=== PATIENT | male | born 1965 | race Asian ===

== ENCOUNTER 2017-05-10 02:18 | Emergency (ER) | payer BC, OTHER ==
[~2017-05-10] VITALS: Ht 152.4 cm; Wt 72.6 kg
[2017-05-10] MEDS ORDERED: LISI1TAB5 PO (02:36)
[2017-05-10] MEDS ORDERED: diphenhydrAMINE 50 MG/ML VIAL IVP ONE (03:00)
[2017-05-10] MEDS ORDERED: methylPREDNISolone SOD SUCC PF 125 MG/2 ML VIAL. IV ONE (03:00)
[2017-05-10] MEDS ORDERED: IV NORMAL SALINE 500ML BAG 500 ML IV ONE (03:00)
[2017-05-10] MEDS ORDERED: FAMOTIDINE 20 MG/2 ML VIAL IVP ONE (03:00)
--- NOTE | 2017-05-10 03:06 | PHYS DOC ---
Past Medical History Past Medical History: Hypertension Past Surgical History: No Surgical History Alcohol Use: None Drug Use: None Adult General Chief Complaint Chief Complaint: ALLERGIC REACTION HPI HPI Patient is a 51 year old male who presents with 4 hour history of itchy rash hives that he thinks is due to some food he might have eaten at a wedding but nothing specific. Denies any lip swelling tongue swelling difficulty swallowing wheezing or shortness of breath or chest pain or lightheadedness. Prior history of food allergy. Take 2 Benadryl a few hours ago with minimal improvement. Review of Systems Review of Systems Constitutional: Denies fever or chills [] Eyes: Denies change in visual acuity, redness, or eye pain [] HENT: Denies nasal congestion or sore throat [] Respiratory: Denies cough or shortness of breath [] Cardiovascular: No additional information not addressed in HPI [] GI: Denies abdominal pain, nausea, vomiting, bloody stools or diarrhea [] : Denies dysuria or hematuria [] Musculoskeletal: Denies back pain or joint pain [] Integument: Denies rash or skin lesions [] Neurologic: Denies headache, focal weakness or sensory changes [] Endocrine: Denies polyuria or polydipsia [] Current Medications Current Medications Current Medications Medications (Trade) Dose Ordered Sig/Isabel Start Time Stop Time Status Last Admin Dose Admin Diphenhydramine HCl (Benadryl) 50 mg 1X ONCE 05/10/17 03:00 05/10/17 03:01 DC 05/10/17 02:47 50 MG Famotidine (Pepcid) 20 mg 1X ONCE 05/10/17 03:00 05/10/17 03:01 DC 05/10/17 02:47 20 MG Methylprednisolone Sodium Succinate (SOLU-Medrol 125MG VIAL) 125 mg 1X ONCE 05/10/17 03:00 05/10/17 03:01 DC 05/10/17 02:48 125 MG Sodium Chloride 500 ml @ 500 mls/hr 1X ONCE 05/10/17 03:00 05/10/17 03:49 DC 05/10/17 02:49 500 MLS/HR Allergies Allergies Allergies Coded Allergies Type Severity Reaction Last Updated Verified No Known Drug Allergies 05/10/17 No Physical Exam Physical Exam Constitutional: Well developed, well nourished, no acute distress, non-toxic appearance. [] HENT: Normocephalic, atraumatic, bilateral external ears normal, oropharynx moist, no oral exudates, nose normal. No lip swelling no tongue swelling [] Eyes: PERRLA, EOMI, conjunctiva normal, no discharge. [] Neck: Normal range of motion, no tenderness, supple, no stridor. [] Cardiovascular:Heart rate regular rhythm, no murmur [] Lungs & Thorax: Bilateral breath sounds clear to auscultation [] Abdomen: Bowel sounds normal, soft, no tenderness, no masses, no pulsatile masses. [] Skin: Warm, dry, no erythema, urticarial rash. [] Back: No tenderness, no CVA tenderness. [] Extremities: No tenderness, no cyanosis, no clubbing, ROM intact, no edema. [] Neurologic: Alert and oriented X 3, normal motor function, normal sensory function, no focal deficits noted. [] Psychologic: Affect normal, judgement normal, mood normal. [] Current Patient Data Vital Signs Vital Signs Date Time Temp Pulse Resp B/P (MAP) Pulse Ox O2 Delivery O2 Flow Rate FiO2 05/10/17 02:36 97.8 122 22 166/97 (120) 96 Room Air 97.8 EKG EKG [] Radiology/Procedures Radiology/Procedures [] Course & Med Decision Making Course & Med Decision Making Pertinent Labs and Imaging studies reviewed. (See chart for details) [Treated with IV fluids, Solu-Medrol, Benadryl, and Pepcid. 3:20 AM: Patient's rash is resolved he is resting comfortably no complaints related to go home. Dragon Disclaimer Dragon Disclaimer This electronic medical record was generated, in whole or in part, using a voice recognition dictation system. Departure Departure Impression: Primary Impression: Urticaria Additional Impression: Food allergy Disposition: 01 HOME, SELF-CARE Condition: IMPROVED Referrals: SINGH KRISHNAMURTHY MD (PCP) Scripts Prednisone (PREDNISONE) 50 Mg Tablet 1 TAB PO DAILY, #5 TAB Prov: CHRIS ALEMAN MD 05/10/17 Problem Qualifiers CHRIS ALEMAN MD May 10, 2017 03:06
[2017-05-10 03:30] VITALS: BP 139/98
[2017-05-10] MEDS ORDERED: PRED50TA PO (03:31)
== END 2017-05-10 03:49 | disposition home or self-care (01) ==
LOC: ER 02:18
DX: L50.0 Allergic urticaria (principal); L27.2 Dermatitis due to ingested food; I10 Essential (primary) hypertension
CPT/HCPCS: 96361; 96374; 96375; 99284; J1200; J2930; J7040; S0028

== ENCOUNTER → 2019-08-29 | Outpatient (CLI) | payer BC, OTHER ==
[~2019-08-29] MED LIST: LISI1TAB19 PO; PRED50TA PO
--- NOTE | 2019-08-29 15:26 | KCIC ---
EXAM: AP, lateral and lumbosacral spot views of the lumbar spine DATE: 08/29/2019 12:00 AM INDICATION: Hyperreflexia low back pain, right leg pain COMPARISON: No Prior FINDINGS: Tiny ribs are seen at T12. 5 nonrib-bearing lumbar-type vertebral bodies. Vertebral body heights are preserved. Mild T11-12 and L5-S1 disc height loss. Associated prominent endplate osteophytes are seen at L1-2, L4-5 and L5-S1. Moderate facet degenerative changes are seen. No spondylolisthesis. Moderate colonic stool content is seen. IMPRESSION: 1. Multilevel spondylosis as above 2. Negative acute fracture or subluxation. 3. Variant anatomy with very small ribs seen at T12 and 5 additional nonrib-bearing lumbar-type vertebral bodies. Electronically signed by: Tim Duvall MD (08/29/2019 3:23 PM) [id number]
== END | disposition home or self-care (01) ==
LOC: KCIC 10:29
PROVIDERS: ATTEND Internal Medicine
DX: M47.817 Spondylosis without myelopathy or radiculopathy, lumbosacral region (principal); M25.78 Osteophyte, vertebrae; M79.604 Pain in right leg
CPT/HCPCS: 72100